=== PATIENT | female | born 1940 | race Caucasian/White ===

== ENCOUNTER 2019-07-16 12:18 | Observation (INO) ==
[2019-07-16 13:02] LABS: Basophils % 0.2 % (0.0-0.8); Eosinophils % 0.8 % (0.00-10.9); Hematocrit 39.3 VOL% (35.7-47.0); Immature Granulocytes % 0.4 %; Immature Granulocytes Absolute 0.02 #; Lymphocytes # 0.8 10*3/uL (1.4-4.0); Lymphocytes % 16.9 % (21.3-54.2); Mean Corpuscular HGB Conc 33.1 GM/DL (32-36); Mean Platelet Volume 10.7 FL (9.6-12.0); Monocytes % 6.9 % (1.7-12.7); Neutrophils % 74.8 % (38.7-73.9); Platelet Count 127 T/CUMM (130-400); Red Blood Count 4.05 MC/CUMM (3.8-5.5); Red Cell Distribution Width 12.9 % (9.3-17.3); White Blood Count 4.9 T/CUMM (4-12)
[2019-07-16 13:12] LABS: Alanine Aminotransferase 20 U/L (13-56); Albumin 3.3 G/DL (3.4-5.0); Alkaline Phosphatase 95 U/L (45-117); Aspartate Amino Transferase 21 U/L (0-37); Bilirubin,Total < 0.39 MG/DL (0.2-1.0); Blood Urea Nitrogen 20 MG/DL (7-18); Calcium 9.2 MG/DL (8.5-10.1); Estimated Glom Filtration Rate 49 ML/MIN; Glucose 135 MG/DL (74-106); Osmolality,Calculated 274.1 MOS/KG (273-304); Total Protein 7.4 G/DL (6.4-8.3)
[2019-07-16] MEDS ORDERED: ONDANSETRON 4 MG/2 ML VIAL IV STA (15:36)
[2019-07-16] MEDS ORDERED: HYDROmorphone 2 MG/1 ML VIAL IV STA (15:36)
[2019-07-16] MEDS ORDERED: HYDROmorphone 2 MG/1 ML VIAL IV PRN (15:38)
[2019-07-16] MEDS ORDERED: ONDANSETRON 4 MG/2 ML VIAL IV PRN (16:51)
[2019-07-16] MEDS ORDERED: SODIUM CHLORIDE 0.9% 1,000 ML IV SCH (16:51)
[2019-07-16] MEDS ORDERED: ACETAMINOPHEN 325 MG TABLET PO PRN (16:51)
[2019-07-16] MEDS ORDERED: traMADol 50 MG TABLET PO PRN (19:48)
[2019-07-16] MEDS: atenoloL 25 MG TABLET PO SCH (21:12)
[2019-07-16] MEDS: DOCUSATE SODIUM 100 MG CAPSULE PO SCH (21:12)
[2019-07-16] MEDS: busPIRone 5 MG TABLET PO SCH (21:12)
[2019-07-16] MEDS: GABAPENTIN 100 MG CAPSULE PO SCH (21:12)
[2019-07-16] MEDS: BRIMONIDINE 0.2% OPH SOLN 5 ML BOTTLE RIGHT EYE SCH (21:12)
[2019-07-16] MEDS ORDERED: hydrALAZINE 25 MG TABLET PO ONE (23:57)
[2019-07-17] MEDS ORDERED: ACETAMINOPHEN 325 MG TABLET PO ONE (00:14)
[2019-07-17] MEDS ORDERED: traMADol 50 MG TABLET PO ONE (00:15)
[2019-07-17 05:30] LABS: Basophils % 0.5 % (0.0-0.8); Eosinophils # 0.1 10*3/uL (0.0-0.87); Eosinophils % 1.9 % (0.00-10.9); Hemoglobin 11.9 GM/DL (12.0-16.0); Immature Granulocytes % 0.3 %; Immature Granulocytes Absolute 0.01 #; Lymphocytes # 1.1 10*3/uL (1.4-4.0); Lymphocytes % 29.1 % (21.3-54.2); Mean Corpuscular HGB Conc 32.2 GM/DL (32-36); Mean Corpuscular Volume 99.7 FL (87-102); Mean Platelet Volume 10.8 FL (9.6-12.0); Monocytes % 13.3 % (1.7-12.7); Neutrophils % 54.9 % (38.7-73.9); Platelet Count 131 T/CUMM (130-400); Red Blood Count 3.71 MC/CUMM (3.8-5.5); Red Cell Distribution Width 12.9 % (9.3-17.3); White Blood Count 3.8 T/CUMM (4-12)
[2019-07-17 05:39] LABS: Calcium 8.5 MG/DL (8.5-10.1); Osmolality,Calculated 280.4 MOS/KG (273-304)
[2019-07-17] MEDS: DOCUSATE SODIUM 100 MG CAPSULE PO SCH (08:07)
[2019-07-17] MEDS: GABAPENTIN 100 MG CAPSULE PO SCH (08:07)
[2019-07-17] MEDS: traMADol 50 MG TABLET PO SCH ×3 (08:07→17:32)
[2019-07-17] MEDS: atenoloL 25 MG TABLET PO SCH (08:08)
[2019-07-17] MEDS: busPIRone 5 MG TABLET PO SCH (08:08)
[2019-07-17] MEDS: BRIMONIDINE 0.2% OPH SOLN 5 ML BOTTLE RIGHT EYE SCH (08:08)
[2019-07-17] MEDS ORDERED: hydrALAZINE 25 MG TABLET PO ONE (08:23)
[2019-07-17] MEDS ORDERED: PANTOPRAZOLE 40 MG TABLET PO SCH (09:00)
[2019-07-17] MEDS ORDERED: ACETAMINOPHEN 325 MG TABLET PO SCH (09:00)
[2019-07-17] MEDS ORDERED: LIDOCAINE 5% PATCH TRANSDERM SCH (09:00)
[2019-07-17] MEDS ORDERED: hydrALAZINE 25 MG TABLET PO SCH (09:00)
[2019-07-17] MEDS ORDERED: LORATADINE 10 MG TABLET PO SCH (09:00)
[2019-07-17 17:44] VITALS: BP 135/55
[2019-07-18] MEDS ORDERED: NITROFURANTOIN MACRO/MONO 100 MG CAPSULE PO SCH (09:00)
== END 2019-07-17 20:34 | disposition home or self-care (01) ==
LOC: N.ED 12:18 → N.EDINP 12:18 → N.2W 15:55
PROVIDERS: ADMIT Internal Medicine; ATTEND Internal Medicine